=== PATIENT | male | born 1935 | race Caucasian/White ===

== ENCOUNTER 2021-02-27 03:06 | Inpatient (IN) ==
[2021-02-28] MEDS ORDERED: Naloxone 0.4 MG/ML INJ IVP PRN (05:05)
[2021-02-28] MEDS ORDERED: Acetaminophen 325 MG TABLET PO PRN (05:05)
[2021-02-28] MEDS ORDERED: Ondansetron 4 MG/2 ML VIAL IVP PRN (05:05)
[2021-02-28] MEDS ORDERED: Melatonin 3 MG TABLET PO PRN (05:05)
[2021-02-28 06:05] LABS: Basophils % 0.3 %; Eosinophils # 0.2 K/mcL (0.0-0.6); Eosinophils % 3.1 %; Hematocrit 24.6 % (37.5-50.1); Hemoglobin 8.1 g/dL (12.9-16.9); Immature Granulocytes % 0.8 % (0-4); Lymphocytes # 1.2 K/mcL (0.6-4.6); Lymphocytes % 19.8 %; Mean Corpuscular HGB Conc 32.9 g/dL (31.6-35.5); Mean Corpuscular Hemoglobin 31.5 pg (28.0-33.3); Mean Corpuscular Volume 95.7 fL (83.0-100.0); Monocytes % 15.9 %; Neutrophils # 3.7 K/mcL (1.6-8.9); Platelet Count 122 K/mcL (140-400); Red Blood Count 2.57 M/mcL (4.19-5.50); Red Cell Distribution Width 14.3 % (11.5-14.5); Segmented Neutrophils % 60.1 %; White Blood Count 6.1 K/mcL (4.3-11.1)
[2021-02-28 06:55] LABS: Albumin 2.4 g/dL (3.5-5.7); Albumin/Globulin Ratio 1.1 (1.1-2.2); Bilirubin,Total 0.5 mg/dL (0.3-1.0); Calcium 7.2 mg/dL (8.6-10.3); Globulin 2.1 g/dL (2.4-3.5); Magnesium 1.4 mg/dL (1.6-2.6); Phosphorous 5.8 mg/dL (2.7-4.5); Potassium 4.5 mEq/L (3.5-5.1); Total Protein 4.5 g/dL (6.4-8.9); Troponin I 0.03 ng/mL (< 0.04)
[2021-02-28] MEDS ORDERED: Ipratropium/Albuterol Neb 3 ML IH PRN (07:28)
[2021-02-28] MEDS: Nystatin POWDER 30 GM BOTTLE TP SCH ×4 (08:37→21:38)
[2021-02-28 16:50] LABS: Bacteria,Urine Few per hpf (None-Few); Bilirubin,Urine Negative (Negative); Blood,Urine Moderate (Negative); Clarity,Urine Turbid (Clear); Color,Urine Light-Yellow (Yellow); Glucose,Urine (UA) Normal (Normal); Ketones,Urine Negative (Negative); Leukocyte Esterase,Urine Large (Negative); Nitrite,Urine Negative (Negative); Protein,Urine 100 mg/dL (Neg-Trace); Specific Gravity,Urine 1.011 (1.010-1.025); Urobilinogen,Urine Normal (Normal); WBC,Urine TNTC per hpf (0-3)
[2021-02-28 17:11] LABS: Squamous Epithelial Cell,Urine Present per hpf (None-Few)
[2021-02-28 17:23] LABS: RBC,Urine 50-100 per hpf (0-3)
[2021-02-28] MEDS ORDERED: cefTRIAXone 1,000 MG in Water for inj. (sterile) 10 ML IVP ONE (18:26)
[2021-02-28] MEDS: *HR* Heparin 5,000 UNIT/ML VIAL SQ SCH (18:54)
[2021-02-28] MEDS ORDERED: Perit. Dialysis with Dex 2.5 % 12,000 ML PERITONEAL ONE ×2 (19:00)
[2021-02-28] MEDS: Metoprolol 100 MG TABLET PO SCH (21:37)
[2021-02-28] MEDS: Insulin DETEMIR 100 UNIT/ML X5UNITS SUBQ SCH (21:37)
[2021-02-28 22:05] LABS: Hepatitis B Surface Antibody < 3.10 mIU/mL
[2021-02-28 22:15] LABS: Hepatitis B Surface Antigen Nonreactive (Nonreactive)
[2021-03-01 05:08] LABS: Basophils % 0.5 %; Eosinophils # 0.2 K/mcL (0.0-0.6); Eosinophils % 3.8 %; Hematocrit 23.1 % (37.5-50.1); Hemoglobin 7.3 g/dL (12.9-16.9); Immature Granulocytes % 0.7 % (0-4); Lymphocytes % 18.4 %; Mean Corpuscular HGB Conc 31.6 g/dL (31.6-35.5); Mean Corpuscular Hemoglobin 30.3 pg (28.0-33.3); Mean Corpuscular Volume 95.9 fL (83.0-100.0); Mean Platelet Volume 10.6 fL (9.4-12.4); Monocytes # 0.9 K/mcL (0.0-1.3); Monocytes % 16.1 %; Neutrophils # 3.3 K/mcL (1.6-8.9); Platelet Count 119 K/mcL (140-400); Red Blood Count 2.41 M/mcL (4.19-5.50); Red Cell Distribution Width 14.3 % (11.5-14.5); Segmented Neutrophils % 60.5 %; White Blood Count 5.5 K/mcL (4.3-11.1)
[2021-03-01 05:12] LABS: INR 1.1
[2021-03-01 05:15] LABS: Activated Partial Thrombo Time 24.8 Seconds (26.0-36.0)
[2021-03-01 05:28] LABS: Calcium 7.1 mg/dL (8.6-10.3); Magnesium 1.7 mg/dL (1.6-2.6); Phosphorous 6.5 mg/dL (2.7-4.5); Potassium 4.6 mEq/L (3.5-5.1)
[2021-03-01] MEDS: *HR* Heparin 5,000 UNIT/ML VIAL SQ SCH ×2 (05:30→17:16)
[2021-03-01] MEDS: Sucralfate 1 GM TABLET PO SCH (08:20)
[2021-03-01] MEDS: Aspirin Enteric Coated 81 MG Tablet PO SCH (08:20)
[2021-03-01] MEDS: Metoprolol 100 MG TABLET PO SCH ×2 (08:20→20:00)
[2021-03-01] MEDS: Cholecalciferol (D-3) 1,000 UNIT (25MCG) TABLET PO SCH (08:20)
[2021-03-01] MEDS: cefTRIAXone 1,000 MG in Water for inj. (sterile) 10 ML IVP SCH (08:22)
[2021-03-01] MEDS: Finasteride 5 MG TABLET PO SCH (08:22)
[2021-03-01] MEDS: Nystatin POWDER 30 GM BOTTLE TP SCH ×3 (08:23→20:00)
[2021-03-01] MEDS: Calcium Acetate 667 MG CAPSULE PO SCH ×3 (10:37→17:16)
[2021-03-01] MEDS ORDERED: Perit. Dialysis with Dex 2.5 % 12,000 ML PERITONEAL ONE (19:00)
[2021-03-01] MEDS: Insulin DETEMIR 100 UNIT/ML X5UNITS SUBQ SCH (20:00)
[2021-03-02] MEDS: *HR* Heparin 5,000 UNIT/ML VIAL SQ SCH (05:44)
[2021-03-02 06:37] LABS: Basophils % 0.4 %; Eosinophils # 0.3 K/mcL (0.0-0.6); Eosinophils % 5.7 %; Hemoglobin 7.6 g/dL (12.9-16.9); Immature Granulocytes % 0.8 % (0-4); Lymphocytes # 1.1 K/mcL (0.6-4.6); Lymphocytes % 22.9 %; Mean Corpuscular Hemoglobin 31.7 pg (28.0-33.3); Mean Corpuscular Volume 95.8 fL (83.0-100.0); Mean Platelet Volume 10.4 fL (9.4-12.4); Monocytes # 0.8 K/mcL (0.0-1.3); Monocytes % 15.7 %; Neutrophils # 2.6 K/mcL (1.6-8.9); Platelet Count 109 K/mcL (140-400); Red Cell Distribution Width 14.3 % (11.5-14.5); Segmented Neutrophils % 54.5 %; White Blood Count 4.8 K/mcL (4.3-11.1)
[2021-03-02 06:57] LABS: % Iron Saturation 36 % (20-55); BUN/Creatinine Ratio 6 (6-26); Blood Urea Nitrogen 59 mg/dL (8-23); Calcium 7.5 mg/dL (8.6-10.3); Carbon Dioxide 30 mEq/L (23-29); Chloride 98 mEq/L (98-107); Glucose 127 mg/dL (70-105); Iron 52 mcg/dL (65-175); Osmolality,Calculated 300 (280-300); Potassium 4.4 mEq/L (3.5-5.1); Sodium 136 mEq/L (136-145); Transferrin 103 mg/dL (203-362); eGFR For African Americans 7 (> 60); eGFR For Non-African Americans 5 (> 60)
[2021-03-02 07:33] LABS: Ferritin > 1500 ng/mL (20-250)
[2021-03-02 08:14] VITALS: BP 128/68
[2021-03-02] MEDS: Calcium Acetate 667 MG CAPSULE PO SCH (08:47)
[2021-03-02] MEDS: Sucralfate 1 GM TABLET PO SCH (08:47)
[2021-03-02] MEDS: Cholecalciferol (D-3) 1,000 UNIT (25MCG) TABLET PO SCH (08:47)
[2021-03-02] MEDS: Aspirin Enteric Coated 81 MG Tablet PO SCH (08:47)
[2021-03-02] MEDS: Metoprolol 100 MG TABLET PO SCH (08:47)
[2021-03-02] MEDS: Finasteride 5 MG TABLET PO SCH (08:48)
[2021-03-02] MEDS: Nystatin POWDER 30 GM BOTTLE TP SCH (08:49)
[2021-03-02] MEDS: cefTRIAXone 1,000 MG in Water for inj. (sterile) 10 ML IVP SCH (08:50)
== END 2021-03-02 11:09 | disposition home health service (06) | DRG 689 ==
LOC: 2ANU → SUATTDRO 02-28 03:36
PROVIDERS: ADMIT Family Medicine; ATTEND Internal Medicine

== ENCOUNTER 2021-05-14 12:58 | Inpatient (IN) ==
[2021-05-14 15:53] LABS: Basophils # 0.1 K/mcL (0.0-0.2); Basophils % 0.8 %; Eosinophils # 0.8 K/mcL (0.0-0.6); Eosinophils % 10.8 %; Hematocrit 39.4 % (37.5-50.1); Hemoglobin 12.4 g/dL (12.9-16.9); Immature Granulocytes % 0.5 % (0-4); Lymphocytes # 0.8 K/mcL (0.6-4.6); Lymphocytes % 10.9 %; Mean Corpuscular HGB Conc 31.5 g/dL (31.6-35.5); Mean Corpuscular Hemoglobin 29.2 pg (28.0-33.3); Mean Corpuscular Volume 92.7 fL (83.0-100.0); Monocytes # 1.2 K/mcL (0.0-1.3); Monocytes % 16.3 %; Neutrophils # 4.6 K/mcL (1.6-8.9); Platelet Count 175 K/mcL (140-400); Red Blood Count 4.25 M/mcL (4.19-5.50); Red Cell Distribution Width 13.8 % (11.5-14.5); Segmented Neutrophils % 60.7 %; White Blood Count 7.6 K/mcL (4.3-11.1)
[2021-05-14 16:16] LABS: Calcium 8.2 mg/dL (8.6-10.3); Potassium 3.7 mEq/L (3.5-5.1)
[2021-05-14 16:23] LABS: Troponin I 0.03 ng/mL (< 0.04)
[2021-05-14 17:38] LABS: Thyroid Stimulating Hormone 3.3 mcIU/mL (0.340-5.600)
[2021-05-14 17:51] LABS: Influenza A PCR Negative (Negative); Influenza B PCR Negative (Negative); Resp. Syncytial Virus PCR Negative (Negative)
[2021-05-14 17:52] LABS: SARS-CoV-2 by PCR (In House) Negative (Negative)
[2021-05-14] MEDS ORDERED: Isovue-370 500 ML BOTTLE IVP ONE (18:23)
[2021-05-14] MEDS ORDERED: Naloxone 0.4 MG/ML INJ IVP PRN (18:48)
[2021-05-14] MEDS ORDERED: *HR* Dextrose 50 % in Water (Vial) 50 ML VIAL IVP PRN (20:12)
[2021-05-14] MEDS ORDERED: D5% in Water 1,000 ML IVC PRN (20:12)
[2021-05-14] MEDS ORDERED: Dextrose Gel 15 GM/37.5 ML TUBE PO PRN ×2 (20:12)
[2021-05-14] MEDS ORDERED: methylPREDNISolone 125 MG/2 ML VIAL IVP ONE (20:38)
[2021-05-14] MEDS ORDERED: Ipratropium/Albuterol Neb 3 ML IH PRN (20:38)
[2021-05-15 01:40] LABS: Basophils # 0.1 K/mcL (0.0-0.2); Basophils % 0.7 %; Eosinophils # 0.9 K/mcL (0.0-0.6); Eosinophils % 13.1 %; Hematocrit 38.4 % (37.5-50.1); Hemoglobin 12.5 g/dL (12.9-16.9); Immature Granulocytes % 0.6 % (0-4); Lymphocytes # 1.3 K/mcL (0.6-4.6); Lymphocytes % 19.6 %; Mean Corpuscular HGB Conc 32.6 g/dL (31.6-35.5); Mean Corpuscular Volume 92.3 fL (83.0-100.0); Mean Platelet Volume 10.3 fL (9.4-12.4); Monocytes # 1.1 K/mcL (0.0-1.3); Monocytes % 15.9 %; Neutrophils # 3.4 K/mcL (1.6-8.9); Platelet Count 173 K/mcL (140-400); Red Blood Count 4.16 M/mcL (4.19-5.50); Red Cell Distribution Width 13.7 % (11.5-14.5); Segmented Neutrophils % 50.1 %; White Blood Count 6.9 K/mcL (4.3-11.1)
[2021-05-15 01:59] LABS: Calcium 8.1 mg/dL (8.6-10.3); Potassium 3.9 mEq/L (3.5-5.1)
[2021-05-15] MEDS: Insulin LISPRO 300 UNITS/3 ML VIAL SUBQ SCH ×5 (06:24→22:43)
[2021-05-15] MEDS: Apixaban 5 MG TABLET PO SCH ×3 (06:24→20:42)
[2021-05-15] MEDS ORDERED: *HR* Metoprolol 5 MG/5 ML VIAL IVP ONE (06:44)
[2021-05-15] MEDS ORDERED: Perflutren Lipid Microsphere 1.3 ML in 0.9 % Sodium Chloride 8.7 ML IVP PRN (10:03)
[2021-05-15 12:21] LABS: Hepatitis B Surface Antibody > 850.00 mIU/mL
[2021-05-15 12:31] LABS: Hepatitis B Surface Antigen Nonreactive (Nonreactive)
[2021-05-15] MEDS ORDERED: *HR* Dextrose 50 % in Water (Syg) 50 ML SYRINGE IVP PRN (15:00)
[2021-05-15] MEDS ORDERED: Perit. Dialysis with Dex 2.5 % 12,000 ML PERITONEAL ONE (19:00)
[2021-05-15] MEDS: Gentamicin Oint 15 GM TUBE TP SCH (22:43)
[2021-05-16 01:48] LABS: Hematocrit 35.8 % (37.5-50.1); Hemoglobin 11.8 g/dL (12.9-16.9); Mean Corpuscular Hemoglobin 29.9 pg (28.0-33.3); Mean Corpuscular Volume 90.6 fL (83.0-100.0); Mean Platelet Volume 9.9 fL (9.4-12.4); Platelet Count 178 K/mcL (140-400); Red Blood Count 3.95 M/mcL (4.19-5.50); Red Cell Distribution Width 13.5 % (11.5-14.5)
[2021-05-16 02:12] LABS: Potassium 3.8 mEq/L (3.5-5.1)
[2021-05-16] MEDS: Levothyroxine 25 MCG TABLET PO SCH (05:47)
[2021-05-16] MEDS: Multivit/Ca/Min/Fe/FA 1 TAB TABLET PO SCH (08:47)
[2021-05-16] MEDS: Insulin LISPRO 300 UNITS/3 ML VIAL SUBQ SCH ×4 (08:47→20:55)
[2021-05-16] MEDS: Aspirin Enteric Coated 81 MG Tablet PO SCH (08:48)
[2021-05-16] MEDS: Sucralfate 1 GM TABLET PO SCH (08:48)
[2021-05-16] MEDS: Cholecalciferol (D-3) 1,000 UNIT (25MCG) TABLET PO SCH (08:48)
[2021-05-16] MEDS: Finasteride 5 MG TABLET PO SCH (08:49)
[2021-05-16] MEDS: Calcium Acetate 667 MG CAPSULE PO SCH ×5 (08:49→18:29)
[2021-05-16] MEDS: Apixaban 5 MG TABLET PO SCH ×2 (08:49→20:50)
[2021-05-16] MEDS ORDERED: COPPER GLUCONATE 2 MG PO SCH (09:00)
[2021-05-16] MEDS: Ipratropium/Albuterol Neb 3 ML IH SCH ×3 (11:39→20:13)
[2021-05-16] MEDS: Azithromycin 250 MG TABLET PO SCH (12:51)
[2021-05-16] MEDS ORDERED: Perit. Dialysis with Dex 2.5 % 12,000 ML PERITONEAL ONE (19:00)
[2021-05-16] MEDS: Gentamicin Oint 15 GM TUBE TP SCH (22:37)
[2021-05-17] MEDS: Ipratropium/Albuterol Neb 3 ML IH SCH ×5 (00:08→15:48)
[2021-05-17] MEDS: Levothyroxine 25 MCG TABLET PO SCH (06:28)
[2021-05-17 06:30] LABS: Basophils % 0.6 %; Eosinophils # 0.7 K/mcL (0.0-0.6); Eosinophils % 10.1 %; Hemoglobin 10.7 g/dL (12.9-16.9); Immature Granulocytes % 0.6 % (0-4); Lymphocytes # 1.1 K/mcL (0.6-4.6); Lymphocytes % 15.6 %; Mean Corpuscular HGB Conc 32.4 g/dL (31.6-35.5); Mean Corpuscular Hemoglobin 29.9 pg (28.0-33.3); Mean Corpuscular Volume 92.2 fL (83.0-100.0); Mean Platelet Volume 10.3 fL (9.4-12.4); Monocytes # 0.9 K/mcL (0.0-1.3); Monocytes % 13.7 %; Neutrophils # 4.1 K/mcL (1.6-8.9); Platelet Count 158 K/mcL (140-400); Red Blood Count 3.58 M/mcL (4.19-5.50); Red Cell Distribution Width 13.8 % (11.5-14.5); Segmented Neutrophils % 59.4 %; White Blood Count 6.8 K/mcL (4.3-11.1)
[2021-05-17 06:47] LABS: Calcium 8.1 mg/dL (8.6-10.3); Magnesium 1.8 mg/dL (1.6-2.6); Potassium 3.6 mEq/L (3.5-5.1)
[2021-05-17] MEDS: Insulin LISPRO 300 UNITS/3 ML VIAL SUBQ SCH ×2 (07:55→13:39)
[2021-05-17] MEDS: Azithromycin 250 MG TABLET PO SCH (08:58)
[2021-05-17] MEDS: Aspirin Enteric Coated 81 MG Tablet PO SCH (08:58)
[2021-05-17] MEDS: Calcium Acetate 667 MG CAPSULE PO SCH ×2 (08:58→13:56)
[2021-05-17] MEDS: Finasteride 5 MG TABLET PO SCH (08:59)
[2021-05-17] MEDS: Apixaban 5 MG TABLET PO SCH (08:59)
[2021-05-17] MEDS: Multivit/Ca/Min/Fe/FA 1 TAB TABLET PO SCH (08:59)
[2021-05-17] MEDS: Sucralfate 1 GM TABLET PO SCH (08:59)
[2021-05-17] MEDS: Cholecalciferol (D-3) 1,000 UNIT (25MCG) TABLET PO SCH (08:59)
[2021-05-17 15:24] VITALS: BP 147/80; PULSE 74; TEMP 98.7; O2SAT 94
== END 2021-05-17 16:36 | disposition home or self-care (01) | DRG 308 ==
LOC: EMEROOARM 12:58 → 2ANU 12:58
PROVIDERS: ADMIT Internal Medicine; ATTEND Internal Medicine

== ENCOUNTER 2021-08-13 14:30 | Inpatient (IN) ==
[2021-08-13 21:25] LABS: Basophils # 0.1 K/mcL (0.0-0.2); Eosinophils # 0.3 K/mcL (0.0-0.6); Eosinophils % 4.9 %; Hematocrit 27.2 % (37.5-50.1); Hemoglobin 8.6 g/dL (12.9-16.9); Immature Granulocytes % 1.7 % (0-4); Lymphocytes # 0.9 K/mcL (0.6-4.6); Mean Corpuscular HGB Conc 31.6 g/dL (31.6-35.5); Mean Corpuscular Hemoglobin 30.6 pg (28.0-33.3); Mean Corpuscular Volume 96.8 fL (83.0-100.0); Mean Platelet Volume 10.5 fL (9.4-12.4); Monocytes # 0.9 K/mcL (0.0-1.3); Monocytes % 15.5 %; Neutrophils # 3.5 K/mcL (1.6-8.9); Platelet Count 164 K/mcL (140-400); Red Blood Count 2.81 M/mcL (4.19-5.50); Red Cell Distribution Width 16.1 % (11.5-14.5); Segmented Neutrophils % 61.9 %; White Blood Count 5.7 K/mcL (4.3-11.1)
[2021-08-13 21:32] LABS: INR 1.3; Prothrombin Time 14.3 Seconds (9.4-12.1)
[2021-08-13 21:35] LABS: Activated Partial Thrombo Time 30.4 Seconds (26.0-36.0)
[2021-08-13 21:44] LABS: BUN/Creatinine Ratio 4 (6-26); Blood Urea Nitrogen 30 mg/dL (8-23); Calcium 7.6 mg/dL (8.6-10.3); Carbon Dioxide 29 mEq/L (23-29); Chloride 99 mEq/L (98-107); Glucose 133 mg/dL (70-105); Magnesium 1.1 mg/dL (1.6-2.6); Osmolality,Calculated 290 (280-300); Potassium 4.1 mEq/L (3.5-5.1); Sodium 136 mEq/L (136-145); Troponin I < 0.03 ng/mL (< 0.04); eGFR For African Americans 7 (> 60); eGFR For Non-African Americans 6 (> 60)
[2021-08-13] MEDS ORDERED: Magnesium Oxide 400 MG TABLET PO STA (21:52)
[2021-08-13 21:56] LABS: Thyroid Stimulating Hormone 3.368 mcIU/mL (0.340-5.600)
[2021-08-13] MEDS ORDERED: Ondansetron 4 MG/2 ML VIAL IVP PRN (22:56)
[2021-08-13] MEDS ORDERED: Melatonin 3 MG TABLET PO PRN (22:56)
[2021-08-13] MEDS ORDERED: *HR* HYDROcodone/Acet 5/325 mg TABLET PO PRN (22:56)
[2021-08-13] MEDS ORDERED: Acetaminophen 325 MG TABLET PO PRN (22:56)
[2021-08-13] MEDS ORDERED: Naloxone 0.4 MG/ML INJ IVP PRN (22:56)
[2021-08-13] MEDS ORDERED: *HR* Promethazine 25 MG/ML VIAL IM PRN (22:56)
[2021-08-14 03:35] LABS: Basophils # 0.1 K/mcL (0.0-0.2); Basophils % 1.5 %; Eosinophils # 0.3 K/mcL (0.0-0.6); Eosinophils % 6.4 %; Hematocrit 24.4 % (37.5-50.1); Hemoglobin 7.6 g/dL (12.9-16.9); Immature Granulocytes % 1.8 % (0-4); Lymphocytes # 0.8 K/mcL (0.6-4.6); Lymphocytes % 18.5 %; Mean Corpuscular HGB Conc 31.1 g/dL (31.6-35.5); Mean Corpuscular Volume 96.4 fL (83.0-100.0); Mean Platelet Volume 10.7 fL (9.4-12.4); Monocytes # 0.8 K/mcL (0.0-1.3); Monocytes % 16.7 %; Neutrophils # 2.5 K/mcL (1.6-8.9); Platelet Count 144 K/mcL (140-400); Red Blood Count 2.53 M/mcL (4.19-5.50); Red Cell Distribution Width 15.8 % (11.5-14.5); Segmented Neutrophils % 55.1 %; White Blood Count 4.6 K/mcL (4.3-11.1)
[2021-08-14 03:48] LABS: INR 1.2; Prothrombin Time 13.5 Seconds (9.4-12.1)
[2021-08-14 03:50] LABS: Calcium 7.4 mg/dL (8.6-10.3); Magnesium 1.6 mg/dL (1.6-2.6); Phosphorous 3.4 mg/dL (2.7-4.5)
[2021-08-14] MEDS ORDERED: Nitroglycerin 1,000 MCG/5 ML VIAL IV ONE (12:04)
[2021-08-14] MEDS ORDERED: Heparin 1,000 UNITS/500 mL 500 ML ONE (12:04)
[2021-08-14] MEDS ORDERED: ISOVUE-370 200 ML INFUS..BTL ONE (12:04)
[2021-08-14] MEDS ORDERED: 0.9 % Sodium Chloride 2,000 ML ONE (12:04)
[2021-08-14] MEDS ORDERED: *HR* Heparin 10,000 UNIT/10 ML VIAL ONE (12:04)
[2021-08-14] MEDS ORDERED: Perflutren Lipid Microsphere 1.3 ML in 0.9 % Sodium Chloride 8.7 ML IVP PRN (12:07)
[2021-08-14] MEDS ORDERED: *HR* FentaNYL (PF) 100 MCG/2 ML VIAL ONE (12:28)
[2021-08-14] MEDS ORDERED: *HR* Midazolam HCl 2 MG/2 ML VIAL ONE (12:28)
[2021-08-14] MEDS ORDERED: SODIUM CHLORIDE/NAHCO3/KCL/PEG 4,000 ML SOLN.RECON PO ONE (17:00)
[2021-08-14] MEDS ORDERED: Perit. Dialysis with Dex 2.5 % 12,000 ML PERITONEAL ONE (19:00)
[2021-08-14 23:32] LABS: Iron 55 mcg/dL (65-175)
[2021-08-15 06:05] LABS: Hematocrit 24.7 % (37.5-50.1); Mean Corpuscular HGB Conc 32.4 g/dL (31.6-35.5); Mean Corpuscular Hemoglobin 30.8 pg (28.0-33.3); Mean Platelet Volume 10.8 fL (9.4-12.4); Platelet Count 147 K/mcL (140-400); Red Cell Distribution Width 15.7 % (11.5-14.5); White Blood Count 5.6 K/mcL (4.3-11.1)
[2021-08-15] MEDS ORDERED: Levothyroxine 25 MCG TABLET PO SCH (06:30)
[2021-08-15 06:33] LABS: Calcium 7.6 mg/dL (8.6-10.3); Magnesium 1.5 mg/dL (1.6-2.6); Potassium 3.8 mEq/L (3.5-5.1)
[2021-08-15] MEDS ORDERED: Cyanocobalamin (B-12) 1,000 MCG TABLET PO SCH (09:00)
[2021-08-15] MEDS ORDERED: Cholecalciferol (D-3) 1,000 UNIT (25MCG) TABLET PO SCH (09:00)
[2021-08-15] MEDS ORDERED: Patient Taking Own Medication 1 EACH PO SCH ×2 (09:00)
[2021-08-15] MEDS ORDERED: Sucralfate 1 GM TABLET PO SCH (09:00)
[2021-08-15] MEDS ORDERED: Finasteride 5 MG TABLET PO SCH (09:00)
[2021-08-15] MEDS ORDERED: calcitrioL 0.25 MCG CAPSULE PO SCH (09:00)
[2021-08-15 16:27] VITALS: BP 111/59; PULSE 80; TEMP 97.8; O2SAT 95
[2021-08-15] MEDS ORDERED: Perit. Dialysis with Dex 2.5 % 12,000 ML PERITONEAL ONE (19:00)
[2021-08-15] MEDS ORDERED: Apixaban 2.5 MG TABLET PO SCH (21:00)
[2021-08-17 10:35] LABS: % Iron Saturation 60 % (20-55); Transferrin 66 mg/dL (200-400)
== END 2021-08-15 18:40 | disposition home or self-care (01) | DRG 286 ==
LOC: 2ANU 14:30 → EMEROOARM 14:30 → SUATTDRO 22:45 → 2ANU 23:16
PROVIDERS: ADMIT Family Medicine; ATTEND Internal Medicine